=== PATIENT | female | born 2000 | race Caucasian/White ===

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

== ENCOUNTER → 2022-01-12 | Outpatient (CLI) | payer OTHER, SELFPAY ==
[2022-01-12 12:17] LABS: Absolute Lymphocyte Count 1.76 X10^3/uL (0.83-4.51); Absolute Neutrophil Count 2.4 X10^3/uL (2.0-7.7); Basophil# 0.02 X10^3/uL; Basophil% 0.4 % (0-1); Eosinophil# 0.08 X10^3/uL; Eosinophils% 1.7 % (0-5); Hematocrit 39.3 % (37-47); Hemoglobin 13.3 g/dL (12.0-15.0); Lymphocyte # 1.76 X10^3/ul (0.83-4.51); Lymphocyte % 38.2 % (19-41); Mean Corp Hgb Conc 33.8 g/dL (32-36); Mean Corpuscular Hgb 30.1 pg (27.0-32.0); Mean Corpuscular Volume 88.9 fL (81-99); Monocyte% 6.5 % (0-10); NRBC Flagged by Analyzer 0 % (0-5); Neutrophil # 2.44 X10^3/uL (2.7-7.7); Platelet Count 245 K/mm3 (150-450); RBC Distribution Width CV 11.9 % (11.6-14.6); RBC Distribution Width SD 38.4 fl (35.1-43.9); Red Blood Count 4.42 M/mm3 (4.2-5.4); White Blood Count 4.6 K/mm3 (4.4-11.0)
[2022-01-12 12:51] LABS: AST(SGOT) 15 U/L (15-37); Alanine Aminotransfer ALT/SGPT 19 U/L (13-56); Albumin, Serum 3.6 g/dL (3.2-5.0); Alkaline Phosphatase 54 U/L (45-117); Anion Gap 6 (5-15); BUN 10 mg/dL (7-18); BUN/Creat Ratio 13.5 RATIO (10-20); Calcium,Total 8.8 mg/dL (8.5-10.1); Chloride 107 mmol/L (98-107); Creatinine, Serum 0.74 mg/dL (0.55-1.02); EST Glomerular Filtration Rate 106 mL/min (>60); Est Glom Filt Rate - Afr Amer 129 mL/min (>60); Globulin 3.5 g/dL (2.2-4.2); Glucose 85 mg/dL (74-106); Potassium 4.3 mmol/L (3.5-5.1); Protein, Total 7.1 g/dL (6.4-8.2); Sodium Level 139 mmol/L (136-145)
[2022-01-12 15:18] LABS: Chlamydia Trachomatis by PCR Negative (Negative); Neisserai gonorrhoeae by PCR Negative (Negative); Probe Check PASS; Sample Adequacy Control PASS; Specimen Processing Control PASS
== END | disposition home or self-care (01) ==
LOC: BIMLAB 08:24
PROVIDERS: PCP Internal Medicine; Referring Provider Internal Medicine; Visit Provider Internal Medicine
DX: Z00.00 Encounter for general adult medical examination without abnormal findings (principal); Z11.3 Encounter for screening for infections with a predominantly sexual mode of transmission
CPT/HCPCS: 36415; 80053; 85025; 87491; 87591

== ENCOUNTER 2022-11-25 18:20 | Emergency (ER) | payer BC, SELFPAY ==
[2022-11-25 18:21] VITALS: BP 117/86; PULSE 80; RESP 18; TEMP 36.6; O2SAT 100; BMI 25.7
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
[2022-11-25 22:48] VITALS: BP 108/68; PULSE 63; RESP 18; O2SAT 98
== END 2022-11-25 23:50 | disposition home or self-care (01) ==
PROVIDERS: Emergency Provider Student in an Organized Health Care Education/Training Program; Visit Provider Student in an Organized Health Care Education/Training Program
DX: O26.891 Other specified pregnancy related conditions, first trimester (principal); R10.9 Unspecified abdominal pain; Z3A.11 11 weeks gestation of pregnancy; V89.2XXA Person injured in unspecified motor-vehicle accident, traffic, initial encounter; Y92.410 Unspecified street and highway as the place of occurrence of the external cause
CPT/HCPCS: 76817; 99282

== ENCOUNTER 2023-06-09 17:44 | Inpatient (IN) | payer BC, SELFPAY ==
[2023-06-09] VITALS (27 sets, daily range): BP systolic 105–141; BP diastolic 58–81; PULSE 66–85; TEMP 36.4–37.2; O2SAT 87–100; BMI 32.1
--- OUTSIDE RECORDS SUMMARY | 2023-06-09 17:35 | XMS RPT_ITS | CCD ---
Author Name Unknown Address [address] [place] [address] Organization [facility] Results Test Name Value Interpretation Reference Range Facil ity Summary Purpose Family History No Family History Records Found Advance Directives No Advanced Directives Records Found Additional Source Comments INFORMATION SOURCE (unrecogn ized section and content) FOR RECORDS PERTAINING TO PATIENTS WHO ARE OR HAVE BEEN ENROLLED IN A CHEMICAL DEPENDENCY/SUBSTANCEABUSE PROGRAM, SOME INFORMATION MAY BE OMITTED. This clinical summary was aggregated from multiple sources. Caution should be exercised in using it in the provision of clinical care. This summary normalizes information from multiple sources, and as a consequence, information in this document may materially change the coding, format and clinical context of patient data. In addition, data may be omitted in some cases. CLINICAL DECISIONS SHOULD BE BASED ON THE PRIMARY CLINICAL RECORDS. [employer] provides no warranty or guarantee of the accuracy or completeness of information in this document.
--- OUTSIDE RECORDS SUMMARY | 2023-06-09 17:48 | XMS RPT_ITS | CCD ---
Author Name Unknown Address [address] [place] [address] Organization [facility] Results Test Name Value Interpretation [...] BE BASED ON THE PRIMARY CLINICAL RECORDS. [employer] provides no warranty or guarantee of the accuracy or completeness of information in this document.
[2023-06-09] MEDS: Lactated Ringers 1,000 ML 50 ML IV (18:10)
[2023-06-09 18:21] LABS: Absolute Lymphocyte Count 1.24 X10^3/uL (0.83-4.51); Absolute Neutrophil Count 11.3 X10^3/uL (2.0-7.7); Basophil# 0.03 X10^3/uL; Basophil% 0.2 % (0-1); Eosinophil# 0.03 X10^3/uL; Eosinophils% 0.2 % (0-5); Hematocrit 35.5 % (37-47); Hemoglobin 11.9 g/dL (12.0-15.0); Lymphocyte # 1.24 X10^3/ul (0.83-4.51); Lymphocyte % 9.3 % (19-41); Mean Corp Hgb Conc 33.5 g/dL (32-36); Mean Corpuscular Hgb 29.6 pg (27.0-32.0); Mean Corpuscular Volume 88.3 fL (81-99); Monocyte# 0.67 X10^3/uL; NRBC Flagged by Analyzer 0 % (0-5); Neutrophil # 11.31 X10^3/uL (2.7-7.7); Neutrophil % 84.9 % (47-70); Platelet Count 195 K/mm3 (150-450); RBC Distribution Width SD 42.1 fl (35.1-43.9); Red Blood Count 4.02 M/mm3 (4.2-5.4); White Blood Count 13.3 K/mm3 (4.4-11.0)
[2023-06-09] MEDS: LACTATED RINGERS 500 ML 999 ML IV (18:31)
[2023-06-09] MEDS: fentaNYL-bupivacaine (epidural) 100 ML BAG EPIDURAL ×2 (19:12→23:10)
[2023-06-09 19:30] LABS: Syphilis Antibodies Non-reactive
[2023-06-09 22:02] LABS: ROM Internal Control Test YES-OK TO RESULT pt. (Internal QC); ROM Patient Test Negative (Negative)
[2023-06-09] MEDS: Lactated Ringers 1,000 ML 200 ML IV (23:10)
[2023-06-10] VITALS (45 sets, daily range): BP systolic 104–157; BP diastolic 56–85; PULSE 62–181; RESP 16–18; TEMP 36.5–38.3; O2SAT 87–100
[2023-06-10] MEDS: 0.9% Saline Lock 10 ML Syringe IV (01:36)
[2023-06-10] MEDS: Ondansetron 4 MG/2 ML Vial IV (01:36)
[2023-06-10] MEDS: LACTATED RINGERS 500 ML 999 ML IV (01:45)
[2023-06-10] MEDS: fentaNYL-bupivacaine (epidural) 100 ML BAG EPIDURAL (04:24)
--- NOTE | 2023-06-10 04:43 | HP.PCM.OB_ITS ---
HPI - General General Date of Admission: 06/08/23 HPI Narrative RISA ALLISON, is a 22 F who presents at 39w6d in active labor. Maternal Data Information BRANDT Calculator Estimated Delivery Date Method Current WG Current Estimate 06/10/23 Manual 40w 0d 39w6d at [facility] Medical History Arthritis Home Medications vit no.95-ferrous fumarate 28 mg-folic acid 800 mcg tablet ( Multivitamins) 1 tab PO DAILY 11/25/22 [History Last Taken Unknown] Allergy/AdvReac Type Severity Reaction Status Date / Time milk AdvReac Diarrhea Verified 06/09/23 17:42 wheat AdvReac Diarrhea Verified 06/09/23 17:42 Family History Father allergic to PCN Grandfather Heart disease Social History household members: other details: mom, sister current occupational status: student current occupation: [employer], [employer] history of recent travel: No sexually active: No (has been in the past) Smoking Status: Never smoker alcohol intake: never substance use type: does not use what type of physical activity do you participate in: running and weight training seatbelt use: always do you feel safe at home: Yes History 0 Elective abortions Hx Para 0 Spontaneous abortions Hx # Term Pregnancies Ectopic pregnancies Hx # Pregnancies Multiple births # of living children NST FHR Rate Baby A Baseline: 150 Variability:: Moderate Accelerations:: 15 x 15 Decelerations:: None FHR Category:: Category I Uterine Activity:: every 2 minutes Vital Signs Vital Signs Vital Signs: 06/09/23 18:36 06/09/23 18:36 06/09/23 18:37 Temperature Temperature Source Temporal Pulse Rate 85 Blood Pressure 141/80 H BP Systolic 141 BP Diastolic 80 Pulse Ox 06/09/23 18:37 06/09/23 18:36 06/09/23 18:55 Temperature 99.0 F Temperature Source Pulse Rate 76 Blood Pressure BP Systolic BP Diastolic Pulse Ox 96 06/09/23 18:55 06/09/23 18:56 06/09/23 18:56 Temperature Temperature Source Pulse Rate 73 Blood Pressure BP Systolic BP Diastolic Pulse Ox 100 87 06/09/23 19:00 06/09/23 19:00 06/09/23 19:02 Temperature Temperature Source Pulse Rate 67 Blood Pressure 126/77 H BP Systolic 126 BP Diastolic 77 Pulse Ox 100 06/09/23 19:02 06/09/23 19:05 06/09/23 19:05 Temperature Temperature Source Pulse Rate 70 70 Blood Pressure BP Systolic BP Diastolic Pulse Ox 100 06/09/23 19:10 06/09/23 19:10 06/09/23 19:12 Temperature Temperature Source Pulse Rate 73 Blood Pressure 105/72 BP Systolic 105 BP Diastolic 72 Pulse Ox 100 06/09/23 19:12 06/09/23 19:15 06/09/23 19:15 Temperature Temperature Source Pulse Rate 76 78 Blood Pressure BP Systolic BP Diastolic Pulse Ox 100 06/09/23 19:17 06/09/23 19:17 06/09/23 19:20 Temperature Temperature Source Pulse Rate 80 80 Blood Pressure 115/71 BP Systolic 115 BP Diastolic 71 Pulse Ox 06/09/23 19:20 06/09/23 19:17 06/09/23 19:17 Temperature 97.5 F L Temperature Source Temporal Pulse Rate Blood Pressure BP Systolic BP Diastolic Pulse Ox 100 06/09/23 19:22 06/09/23 19:22 06/09/23 19:25 Temperature Temperature Source Pulse Rate 76 74 Blood Pressure 120/81 H BP Systolic 120 BP Diastolic 81 Pulse Ox 06/09/23 19:25 06/09/23 19:27 06/09/23 19:27 Temperature Temperature Source Pulse Rate 81 Blood Pressure 118/72 BP Systolic 118 BP Diastolic 72 Pulse Ox 100 06/09/23 19:30 06/09/23 19:30 06/09/23 19:32 Temperature Temperature Source Pulse Rate 79 Blood Pressure 122/73 H BP Systolic 122 BP Diastolic 73 Pulse Ox 100 06/09/23 19:32 06/09/23 19:35 06/09/23 19:35 Temperature Temperature Source Pulse Rate 84 80 Blood Pressure BP Systolic BP Diastolic Pulse Ox 99 06/09/23 19:37 06/09/23 19:37 06/09/23 19:40 Temperature Temperature Source Pulse Rate 85 85 Blood Pressure 114/71 BP Systolic 114 BP Diastolic 71 Pulse Ox 06/09/23 19:40 06/09/23 19:42 06/09/23 19:42 Temperature Temperature Source Pulse Rate 79 Blood Pressure 118/69 BP Systolic 118 BP Diastolic 69 Pulse Ox 100 06/09/23 20:38 06/09/23 20:38 06/09/23 20:38 Temperature Temperature Source Temporal Pulse Rate 69 Blood Pressure 122/68 H BP Systolic 122 BP Diastolic 68 Pulse Ox 06/09/23 20:38 06/09/23 21:33 06/09/23 21:34 Temperature 97.5 F L Temperature Source Pulse Rate 66 Blood Pressure 113/58 L BP Systolic 113 BP Diastolic 58 Pulse Ox 06/09/23 21:34 06/09/23 21:33 06/09/23 21:33 Temperature 97.9 F Temperature Source Temporal Pulse Rate Blood Pressure BP Systolic BP Diastolic Pulse Ox 99 06/09/23 22:19 06/09/23 22:19 06/09/23 23:17 Temperature Temperature Source Pulse Rate 67 Blood Pressure 112/64 121/74 H BP Systolic 112 121 BP Diastolic 64 74 Pulse Ox 06/09/23 23:18 06/09/23 23:18 06/09/23 23:17 Temperature Temperature Source Temporal Pulse Rate 75 Blood Pressure BP Systolic BP Diastolic Pulse Ox 100 06/09/23 23:17 06/10/23 00:44 06/10/23 00:44 Temperature 97.8 F Temperature Source Pulse Rate 64 Blood Pressure 118/67 BP Systolic 118 BP Diastolic 67 Pulse Ox 06/10/23 00:44 06/10/23 00:44 06/10/23 01:32 Temperature 98.4 F Temperature Source Temporal Pulse Rate Blood Pressure 119/61 BP Systolic 119 BP Diastolic 61 Pulse Ox 06/10/23 01:32 06/10/23 01:32 06/10/23 01:32 Temperature Temperature Source Temporal Pulse Rate 78 Blood Pressure BP Systolic BP Diastolic Pulse Ox 100 06/10/23 01:32 06/10/23 02:46 06/10/23 02:46 Temperature 98.2 F Temperature Source Pulse Rate 181 H Blood Pressure BP Systolic BP Diastolic Pulse Ox 87 06/10/23 02:47 06/10/23 02:47 06/10/23 02:47 Temperature Temperature Source Temporal Pulse Rate 83 Blood Pressure 134/78 H BP Systolic 134 BP Diastolic 78 Pulse Ox 06/10/23 02:47 06/10/23 03:46 06/10/23 03:46 Temperature 98.9 F Temperature Source Pulse Rate 75 Blood Pressure 128/73 H BP Systolic 128 BP Diastolic 73 Pulse Ox 06/10/23 03:46 06/10/23 03:46 06/10/23 04:26 Temperature 99.2 F H Temperature Source Temporal Pulse Rate 81 Blood Pressure BP Systolic BP Diastolic Pulse Ox 06/10/23 04:26 06/10/23 04:27 06/10/23 04:27 Temperature Temperature Source Pulse Rate 136 H Blood Pressure 157/85 H BP Systolic 157 BP Diastolic 85 Pulse Ox 88 06/10/23 04:27 06/10/23 04:27 06/10/23 04:27 Temperature 99.2 F H Temperature Source Temporal Pulse Rate Blood Pressure BP Systolic BP Diastolic Pulse Ox 91 Weight Weight: 175 lb 12.8 oz Body Mass Index (BMI) 32.1 Physical Exam Const alert and oriented x3 General Appearance: cooperative Orientation / Consciousness: awake, oriented to person, oriented to place and or iented to time Exam Limitations: no limitations HEENT normocephalic Head and Scalp: normal to inspection, normocephalic and atraumatic Face and Sinus: normal facial exam Eyes General Eye: normal appearance of both eyes Neck full ROM Chest Chest: symmetrical chest wall rise Resp normal respiratory effort and normal air movement Auscultation: clear to auscultation bilaterally Cardio regular rate, regular rhythm, S1 normal heart sound, S2 normal heart sound, no murmurs, no rub, no gallops and no clicks GI non-tender appearance of the vagina normal Bladder / Kidney Exam: no CVA tenderness Back/Spine normal ROM Extremity normal to inspection and full ROM Skin no rashes or lesions noted Neuro oriented x3 and moves all extremities Sensorium / Orientation: awake, alert and oriented to person Labs Labs Labs: Blood Type O POSITIVE Antibody Screen NEGATIVE Hct 35.5 % (37-47) L Hgb 11.9 g/dL (12.0-15.0) L Obstetrics Ultrasound Syphilis Total Ab Non-reactive Hep Bs Antigen Non-Reactive (Nonreactive) Hepatitis C Antibody Non-Reactive (Nonreactive) GBS negative Assessment & Plan (1) Late care affecting : (2) Active labor at term: (3) 39 weeks gestation of : (4) History of rheumatoid arthritis: (5) Anemia affecting : PLAN: Plan 1) Admit to labor and delivery 2) Routine labs 3) GBS negative 4) Continuous EFM 5) Epidural for pain management 6) Dr. Painter notified of admission, patient status, above assessment and plan
[2023-06-10] MEDS: Oxytocin 10 UNITS/ML Vial IM (05:03)
[2023-06-10] MEDS: Oxytocin 15 Units/NS 250ml 15 UNITS/250 ML IV.SOLN 83 UNITS IV (05:03)
[2023-06-10] MEDS: Methylergonovine 0.2 MG/ML Ampul 0.200000000000000011 MG IM (05:13)
--- NOTE | 2023-06-10 05:13 | EX.PCM.OBRPT ---
Assessment & Plan (1) Vaginal delivery: (2) First degree perineal laceration: (3) Lactating mother: (4) uterine atony without hemorrhage: Maternal Data Information BRANDT Calculator Estimated Delivery Date Method Current WG Current Estimate 06/10/23 Manual 40w 0d 39w6d at admission Gestational age: 40 weeks at delivery Vaginal Delivery Maternal Presentation Maternal Presentation: Active Labor and Spontaneous Rupture of Membranes Operative Information Date of Procedure: 06/10/23 Pre-Operative Diagnosis: Active labor at term Post-Operative Diagnosis: , first degree perineal laceration Surgery / Procedure Performed: Spontaneous Vaginal Delivery Type of Anesthesia: Epidural Estimated Blood Loss: 350 ml Time of Delivery: 04:57 Findings Description of Procedure: Progressed to complete with urge to push. Epidural for pain management. Marked variability. of viable female infant over first degree perineal laceration. APGARS 8,9 respectively. Infant head delivered with body immediately forthcoming, trailing meconium Placed on maternal abdomen, strong cry. Mouth and nares suctioned for secretions. Pitocin started for active 3rd stage management. Cord doubly clamped and cut by FOB after pulsations ceased, delayed cord clamping. Placenta delivered intact via jenkins, 3 vessel cord intact. Perineum inspected and revealed 1st degree perineal laceration. Repaired with 3.0 vicryl rapide and epidural. Fundus boggy and bleeding, Methergine given, and hemostasis achieved. EBL 350ml Mom and baby stable, planning to breastfeed. Family bonding well. Dr. Painter notified of delivery. Presentation: Vertex and ALIYAH Amniotic Membrane Rupture Type: Spontaneous Amniotic Fluid Description: Clear Placental Delivery Description: Spontaneous Placenta Disposition: [facility] Cord Vessel Description: 3 Vessels Cord Entanglement: None Infant A Gender: Female (1 minute): 8 (5 minute): 9 Delayed Cord Clamping: Yes Post Vaginal Delivery Medications Given After Delivery: IV Pitocin, IM Pitocin and IM Methergin Episiotomy Description: None Laceration: Perineal Extension/lac and 1st degree Complication Complications: None (uterine atony)
[2023-06-10] MEDS: Acetaminophen 500 MG Tablet 1000 MG PO (06:45)
--- NOTE | 2023-06-10 08:00 | NURSING ---
Epidural catheter removed at 0800 - came out without resistance - blue tip intact.
[2023-06-11 00:46] VITALS: BP 109/63; PULSE 65; RESP 16; TEMP 36.4
[2023-06-11 03:55] VITALS: BP 119/50; PULSE 59; RESP 14; TEMP 36.6; O2SAT 97
[2023-06-11 08:25] VITALS: BP 107/69; PULSE 58; RESP 16; TEMP 36.4; O2SAT 99
--- NOTE | 2023-06-11 08:28 | PCM.DC.SUM ---
Providers Date of Admission: 06/09/23 Primary Care Physician: Maggie Primary Care Phys Reason For Visit: VAG Diagnosis Discharge Diagnosis (1) Vaginal delivery: Status: Acute Code(s): O80 - Encounter for full-term uncomplicated delivery (2) First degree perineal laceration: Status: Acute Code(s): O70.0 - First degree perineal laceration during delivery (3) Lactating mother: Status: Acute Code(s): Z39.1 - Encounter for care and examination of lactating mother (4) uterine atony without hemorrhage: Status: Acute Code(s): O75.89 - Other specified complications of labor and delivery Plan 1) Admit to labor and delivery 2) Routine labs 3) GBS negative 4) Continuous EFM 5) Epidural for pain management 6) Dr. Painter notified of admission, patient status, above assessment and plan Medications at Discharge Home Medications vit no.95-ferrous fumarate 28 mg-folic acid 800 mcg tablet ( Multivitamins) 1 tab PO DAILY 11/25/22 acetaminophen 500 mg tablet 1,000 mg (2 x 500 mg) PO Q6H PRN PRN Pain 1-10 Or Fever #0 tabs 06/11/23 ibuprofen 600 mg tablet 600 mg PO Q6H PRN PRN Pain Score 1-3 #0 tabs 06/11/23 Weight / BMI Weight Weight: 175 lb 12.8 oz Body Mass Index (BMI) 32.1 ABG / Lab / Microbiology Data 06/09/23 18:10 D/C Instructions Discharge Diet: No restrictions Discharge Activity: Return to Normal Activity, May Drive, May Shower and May Take a Tub Bath May resume sexual activity in: 6 weeks Weight Bearing Status: Full weight bearing Please Follow Up With: Lyndsey Bhardwaj CNM When: 2 weeks and 6 weeks PP Meaningful Use Info Meaningful Use Diagnoses (Choose all that apply): None applicable Discharge Plan Admission Admit Date/Time: 06/09/23 17:44 Primary Reason for Your Visit: vaginal delivery Attending Provider: Lyndsey Bhardwaj Primary Care Provider: Care PhysicianMaggie Primary Discharge Orders/Prescriptions Prescriptions: New acetaminophen 500 mg Tablet 1,000 mg PO Q6H PRN PRN (Reason: Pain 1-10 Or Fever) Qty: 0 0RF ibuprofen 600 mg Tablet 600 mg PO Q6H PRN PRN (Reason: Pain Score 1-3) Qty: 0 0RF Continued PNV cmb#95-ferrous fumarate-FA [ Multivitamins] 28 mg iron- 800 mcg tablet 1 tab PO DAILY Referrals / Follow Up: Care Physician,No Primary [Primary Care Provider] - Disposition Disposition (needs filled in before D/C Order can be placed): Home, Self Care
--- NOTE | 2023-06-11 08:37 | PCM.PN.OB ---
Subjective Subjective Doing well per patient and nursing staff. Ambulating and taking PO without difficulty. Voiding and passing flatus. Pain controlled. , services for assistance. Denies headache, visual changes, chest pain, shortness of breath, leg pain or increased bleeding. Lochia normal. Objective Data Objective Data Vital Signs: Vital Signs Temp Pulse Resp BP Pulse Ox O2 Del Method 97.9 F 59 L 14 119/50 L 97 Room Air 06/11/23 03:55 06/11/23 03:55 06/11/23 03:55 06/11/23 03:55 06/11/23 03:55 06/11/23 03:55 Oxygen Delivery Method Room Air Weight: 175 lb 12.8 oz Body Mass Index (BMI) 32.1 Intake & Output: Intake and Output for Last 24 Hours 06/09/23 06/10/23 06/11/23 23:59 23:59 23:59 Intake Total 1477.50 / 1477.50 2150.00 / 2150.00 Output Total 150 / 150 1050 / 1050 Balance 1327.50 / 1327.50 1100.00 / 1100.00 - / -1 Lab / Micro Data 06/09/23 18:10 ROS Constitutional Constitutional: Reports systems reviewed and no addt'l complaints, except as documented; Denies headache(s) Eyes Eyes: Denies acute decrease in peripheral vision, blurry vision or change in vision ENT HEENT: Reports systems reviewed and no addt'l complaints, except as documented Cardiovascular Cardiovascular: Denies chest pain or dizziness Respiratory/Chest Respiratory/Chest: Denies cough, dyspnea, dyspnea on exertion, shortness of breath at rest or shortness of breath with exertion Gastrointestinal Gastrointestinal: Denies abdominal pain, diarrhea, nausea or vomiting Genitourinary Genitourinary: Denies abdominal discomfort Musculoskeletal Musculoskeletal: Denies limited range of motion Integumentary Integumentary: Reports systems reviewed and no addt'l complaints, except as documented Neurologic Neurologic: Reports systems reviewed and no addt'l complaints, except as documented Psychiatric Psychiatric: Reports systems reviewed and no addt'l complaints, except as documented Endocrine Endocrinology: Reports systems reviewed and no addt'l complaints, except as documented Hematologic/Lymphatic Hematologic/Lymphatic: Reports systems reviewed and no addt'l complaints, except as documented Allergic/Immunologic Allergic/Immunologic: Reports systems reviewed and no addt'l complaints, except as documented Physical Exam Const alert and oriented x3 General Appearance: cooperative Orientation / Consciousness: awake, oriented to person, oriented to place and oriented to time Exam Limitations: no limitations HEENT normocephalic Head and Scalp: normal to inspection, normocephalic and atraumatic Face and Sinus: normal facial exam Eyes General Eye: normal appearance of both eyes Neck full ROM Chest Chest: symmetrical chest wall rise Resp normal respiratory effort and normal air movement Auscultation: clear to auscultation bilaterally Cardio regular rate, regular rhythm, S1 normal heart sound, S2 normal heart sound, no murmurs, no rub, no gallops and no clicks GI normal to inspection, nondistended, normoactive bowel sounds and non-tender appearance of the vagina normal Bladder / Kidney Exam: no CVA tenderness Back/Spine normal ROM Extremity normal to inspection and full ROM Skin no rashes or lesions noted Neuro oriented x3 and moves all extremities Sensorium / Orientation: awake, alert and oriented to person Deep Tendon Reflexes: Rt Patellar (L4): 2+ and Lt Patellar (L4): 2+ Assessment & Plan (1) Lactating mother: (2) First degree perineal laceration: (3) Vaginal delivery: (4) uterine atony without hemorrhage: PLAN: Plan 1) Routine PP care 2) pain management 3) D/C home today
[2023-06-11] MEDS: Acetaminophen 500 MG Tablet 1000 MG PO (08:44)
[2023-06-11 13:55] VITALS: BP 125/76; PULSE 86; RESP 16; TEMP 36.4
== END 2023-06-11 13:55 | disposition home or self-care (01) | DRG 807 ==
LOC: WPOUT 17:46 → WP 17:46
PROVIDERS: Admitting Provider Advanced Practice Midwife; Visit Provider Advanced Practice Midwife
DX: O70.0 First degree perineal laceration during delivery (principal); Z37.0 Single live birth; O62.2 Other uterine inertia; Z87.39 Personal history of other diseases of the musculoskeletal system and connective tissue; Z3A.40 40 weeks gestation of pregnancy; O99.02 Anemia complicating childbirth
CPT/HCPCS: 59025; 59050; 84112; 85025; 86780; 86850; 86900; 86901; 99221; J7120; A4216; G0378; J2405